=== PATIENT | male | born 1950 | race Caucasian/White ===

== ENCOUNTER 2016-07-18 07:49 | Inpatient (IN) | payer MEDICARE ==
--- NOTE | ~2016-07-18 | DS ---
Discharge Summary [facility] [address] [place]. [address] NAME: ARTHUR GAMBOA : 46 STATUS : DIS IN PAT#: [id number] AGE: 66 ADM/REG DATE : 07/18/16 MR#: [id number] REPORT SERV DATE: 07/30/16 DICTATED BY: REBA HIGGINS DATE: 07/30/16 REPORT STATUS : Draft TRANSCRIBED BY: BILL DATE: 07/30/16 Data Collection from hospitalization DISCHARGE DIAGNOSES: 1. Non-ST elevation myocardial infarction. 2. Coronary artery disease, status post drug-eluting stent to the LAD. 3. Ischemic cardiomyopathy. 4. Chronic kidney disease stage 3. CONSULTATIONS: None. PROCEDURES PERFORMED: Cardiac catheterization and percutaneous coronary intervention on 07/20/2016. MEDICATIONS: Aspirin 81 mg daily, Lipitor 40 mg at bedtime, Coreg 6.25 mg twice a day, Plavix 75 mg daily, and nitroglycerin 0.4 mg sublingually as needed. CONDITION AT DISCHARGE: Stable. DISPOSITION: The patient was discharged home on a low-sodium, low-cholesterol, cardiac diet with activities as instructed. He would follow up with Dr. Romulo Lamb, on 08/14/2016. HOSPITAL COURSE: This is a 66-year-old man, who has been hospitalized in March 2014, with acute coronary syndrome. He had a previous left circumflex stented in 2006. On March of 2014, he had a totally occluded circumflex that was recannulized and a proximal RCA that was also stented. His ejection fraction prior to that time of his most recent myocardial infarction was 40%. He said that on the evening prior to this admission, he was awakened from sleep around midnight and felt somewhat uncomfortable, he went back to bed, and got up again around 2:00 a.m., and started to develop some worsening discomfort. He tries to relieve himself by drinking a carbonated beverage. He finally went to the [facility] where he was found to have elevated enzymes. Chest discomfort was 6/10, with some left arm aching. He was presently asymptomatic. Labs from the outside emergency room showed chronic kidney disease stage 3. He had a creatinine level of 2. Glucose was elevated at 151. Troponin was found to be 0.18. The EKG showed no acute repolarization changes. He was felt to have had a xlb-OE-fdgeekrrn myocardial infarction. He has underlying ischemic cardiomyopathy. He was admitted to the hospital at this time for further evaluation and treatment. Upon admission, he was alert and cooperative. His abdomen was soft and nontender. The following day, he had slight twinges of discomfort during the night. It was felt that he would need to undergo cardiac catheterization and possible percutaneous coronary intervention. On the 07/20/2016, he had no chest pain. At this time, he was in a normal sinus rhythm. Troponin was 2.88. No SULY inhibitor would be given, secondary to his elevated creatinine. He was taken to the cardiac paint laboratory technician by Dr. Ray Celis, where he underwent the above-mentioned procedure. He tolerated this well. There were no complications. Discharge planning was performed. On 07/21/2016, he had no new complaints. He had good pain control. He was in a sinus rhythm. Discharge instructions were given. Due to his improved and stable condition, he was discharged home with the above-stated Discharge Summary [address] [address] NAME: ARTHUR GAMBOA : 46 STATUS : DIS IN PAT#: [id number] AGE: 66 ADM/REG DATE : 07/18/16 MR#: [id number] REPORT SERV DATE: 07/30/16 DICTATED BY: REBA HIGGINS DATE: 07/30/16 REPORT STATUS : Draft TRANSCRIBED BY: BILL DATE: 07/30/16 instructions. Information collected by: Cristal Gipson I submit the above information as my discharge summary. TG/BILL Reba Higgins M.D. / [id number] CC: Jose Carlos Prince M.D.
--- NOTE | ~2016-07-18 | HP ---
History And Physical [facility] [id number] [place]. [address] NAME: ARTHUR GAMBOA : 46 STATUS : ADM IN [facility]#: [id number] AGE: 66 ADM/REG DATE : 07/18/16 MR#: [id number] REPORT SERV DATE: 07/18/16 DICTATED BY: REBA KELLY DATE: 07/18/16 REPORT STATUS : Draft TRANSCRIBED BY: MODL DATE: 07/18/16 DATE OF ADMISSION: 07/18/2016 INDICATION: Non-ST elevated NE. HISTORY: The patient is a 66-year-old gentleman who was hospitalized in 03/2014 with acute coronary syndrome. He had a previous left circumflex stented in 2006. In 03/2014, he had a totally occluded circumflex that was recanalized and a proximal RCA that was also stented. His EF prior to the time of his most recent NE was 40%. He states yesterday evening he awakened from sleep around midnight and felt somewhat uncomfortable. He went back to bed and got up again at 2 and started to develop some this worsening discomfort. He tried to relieve himself by drinking a carbonated beverage. He finally went to the [facility] where he was found to have elevated enzymes. Chest discomfort was 6/10 with some left arm aching. He is presently asymptomatic. Labs from the outside emergency room showed chronic kidney disease stage 3 with a BUN 21, creatinine of 2, glucose is elevated at 151. His troponin was 0.18. EKG showed no acute repolarization changes. CURRENT HOME MEDICATIONS: Aspirin 81 a day, atorvastatin 80 at h.s., carvedilol 3.125 b.i.d., and clopidogrel 75 a day. ALLERGIES OR INTOLERANCES: None. SOCIAL HISTORY: Negative for alcohol or tobacco use. FAMILY HISTORY: Mother is alive at age 91. She has some moderate dementia. Father in his 50s from metastatic melanoma. PHYSICAL EXAMINATION: GENERAL: 66-year-old white male, pleasant, and comfortable. VITAL SIGNS: Blood pressure 130/66, pulse 78 and regular, respirations 18. SKIN: No xanthelasmas. HEENT: Normocephalic. There is no pallor. Sclerae are white. NECK: JVD is not elevated. No carotid bruits. CHEST: No crackles. CARDIAC: S1 normal, S2 physiologic. Soft S4. ABDOMEN: Without tenderness. EXTREMITIES: Without edema. No clubbing. NEUROLOGIC: No focal deficits. MUSCULOSKELETAL: No kyphosis. LABORATORY DATA: Here none yet available. IMPRESSION: A 66-year-old gentleman with underlying ischemic cardiomyopathy, elevated History And Physical [address] [address] NAME: ARTHUR GAMBOA : 46 STATUS : ADM IN [facility]#: [id number] AGE: 66 ADM/REG DATE : 07/18/16 MR#: [id number] REPORT SERV DATE: 07/18/16 DICTATED BY: REBA KELLY DATE: 07/18/16 REPORT STATUS : Draft TRANSCRIBED BY: MODL DATE: 07/18/16 troponins, and chest discomfort. He will be admitted for further evaluation and therapy. DW/BILL Reba Kelly M.D. / [id number] CC: Tunde Palacios M.D. UNKNOWN , [facility]
[~2016-07-18 07:49] MED LIST: ASAB PO; BRILINTA90 MG PO; COREG6 PO; LIPITOR80 MG PO
[2016-07-18] MEDS ORDERED: PLAVIX PO (08:02)
[2016-07-18 12:47] LABS: BASOPHILS 0.2 %; BASOPHILS ABSOLUTE 0.02 10/3/uL (0.0-0.16); EOSINOPHILS 0.6 %; EOSINOPHILS ABSOLUTE 0.05 10/3/uL (0.0-0.53); HEMOGLOBIN 14.1 g/dL (13.6-17.8); IMMATURE GRANULOCYTES 0.1 %; IMMATURE GRANULOCYTES ABSOLUTE 0.01 10/3/uL (0.0-0.11); LYMPHOCYTES 8.6 %; LYMPHOCYTES ABSOLUTE 0.74 10/3/uL (0.67-4.30); MEAN CORPUS HGB CONC 34.4 g/dL (32.0-36.0); MEAN CORPUSCULAR HEMOGLOB 30.4 pg (26.0-34.0); MEAN CORPUSCULAR VOLUME 88.4 fL (80-100); MEAN PLATELET VOLUME 10.7 fL (9.2-13.0); MONOCYTES 8.3 %; MONOCYTES ABSOLUTE 0.71 10/3/uL (0.21-1.20); NEUTROPHILS 82.2 %; NEUTROPHILS ABSOLUTE 7.07 10/3/uL (2.02-8.40); PLATELET COUNT 159 10/3/uL (150-400); RBC DISTRIBUTION WIDTH 13.4 % (12.0-16.0); RED CELL COUNT 4.64 10/6/uL (4.7-6.1)
[2016-07-18 12:54] LABS: MANUAL DIFF NO %; WHITE BLOOD CELLS 8.6 10/3/uL (4.5-10.5)
[2016-07-18 13:01] LABS: BUN (BLOOD UREA NITROGEN) 20 MG/DL (6-23); CALCIUM, SERUM 8.8 MG/DL (8.5-10.4); CHLORIDE, SERUM 107 MMOL/L (96-112); CO2 (CARBON DIOXIDE) 29 MMOL/L (24-34); CREATININE 1.85 MG/DL (0.70-1.30); GFR AFRICAN AMERICAN 42 ML/MIN (>=60); GFR NON AFRICAN AMERICAN 37 ML/MIN (>=60); INTERNATIONAL NORMAL RATI 1.1 UNITS (-); PARTIAL THROMBO TIME 38.8 SEC (22.5-37.2); POTASSIUM, SERUM 3.9 MMOL/L (3.5-5.3); PROTIME (NOT ORD) 14.3 SEC (12.0-14.5); SODIUM, SERUM 142 MMOL/L (135-148)
[2016-07-18 13:02] LABS: GLUCOSE, SERUM 154 MG/DL (60-99)
[2016-07-18 13:03] LABS: TROPONIN I 0.18 NG/ML (<0.05)
[2016-07-19 04:16] LABS: BASOPHILS 0.3 %; BASOPHILS ABSOLUTE 0.02 10/3/uL (0.0-0.16); EOSINOPHILS 2.2 %; EOSINOPHILS ABSOLUTE 0.17 10/3/uL (0.0-0.53); HEMATOCRIT 38.4 % (40.0-51.0); HEMOGLOBIN 12.9 g/dL (13.6-17.8); IMMATURE GRANULOCYTES 0.1 %; IMMATURE GRANULOCYTES ABSOLUTE 0.01 10/3/uL (0.0-0.11); LYMPHOCYTES 13.8 %; LYMPHOCYTES ABSOLUTE 1.04 10/3/uL (0.67-4.30); MEAN CORPUS HGB CONC 33.6 g/dL (32.0-36.0); MEAN CORPUSCULAR HEMOGLOB 29.9 pg (26.0-34.0); MEAN CORPUSCULAR VOLUME 88.9 fL (80-100); MEAN PLATELET VOLUME 10.7 fL (9.2-13.0); MONOCYTES 12.7 %; MONOCYTES ABSOLUTE 0.96 10/3/uL (0.21-1.20); NEUTROPHILS 70.9 %; NEUTROPHILS ABSOLUTE 5.36 10/3/uL (2.02-8.40); PLATELET COUNT 135 10/3/uL (150-400); RBC DISTRIBUTION WIDTH 13.3 % (12.0-16.0); RED CELL COUNT 4.32 10/6/uL (4.7-6.1); WHITE BLOOD CELLS 7.6 10/3/uL (4.5-10.5)
[2016-07-19 04:17] LABS: MANUAL DIFF NO %
[2016-07-19 04:33] LABS: BUN (BLOOD UREA NITROGEN) 21 MG/DL (6-23); CALCIUM, SERUM 8.3 MG/DL (8.5-10.4); CHLORIDE, SERUM 108 MMOL/L (96-112); CHOL/HDL RATIO(NOT ORDER) 1.8 (0-5); CHOLESTEROL 80 MG/DL (< 200); CO2 (CARBON DIOXIDE) 23 MMOL/L (24-34); CREATININE 1.72 MG/DL (0.70-1.30); GFR AFRICAN AMERICAN 46 ML/MIN (>=60); GFR NON AFRICAN AMERICAN 40 ML/MIN (>=60); GLUCOSE, SERUM 173 MG/DL (60-99); HDL CHOLESTEROL 45 MG/DL (> 39); LDL CHOLESTEROL 26 MG/DL (< 130); NON-HDL CHOLESTEROL 35 MG/DL (< 160); SGPT(ALT) 20 U/L (5-65); SODIUM, SERUM 141 MMOL/L (135-148); TRIGLYCERIDE 46 MG/DL (< 150)
[2016-07-19 04:40] LABS: PARTIAL THROMBO TIME > 150.0 SEC (22.5-37.2)
[2016-07-20 05:33] LABS: BASOPHILS 0.5 %; BASOPHILS ABSOLUTE 0.03 10/3/uL (0.0-0.16); EOSINOPHILS 3.8 %; EOSINOPHILS ABSOLUTE 0.25 10/3/uL (0.0-0.53); HEMATOCRIT 38.6 % (40.0-51.0); HEMOGLOBIN 13.1 g/dL (13.6-17.8); IMMATURE GRANULOCYTES 0.3 %; IMMATURE GRANULOCYTES ABSOLUTE 0.02 10/3/uL (0.0-0.11); LYMPHOCYTES 17.6 %; LYMPHOCYTES ABSOLUTE 1.17 10/3/uL (0.67-4.30); MANUAL DIFF NO %; MEAN CORPUS HGB CONC 33.9 g/dL (32.0-36.0); MEAN CORPUSCULAR VOLUME 88.5 fL (80-100); MEAN PLATELET VOLUME 10.7 fL (9.2-13.0); MONOCYTES 7.8 %; MONOCYTES ABSOLUTE 0.52 10/3/uL (0.21-1.20); NEUTROPHILS ABSOLUTE 4.66 10/3/uL (2.02-8.40); PLATELET COUNT 139 10/3/uL (150-400); RBC DISTRIBUTION WIDTH 13.3 % (12.0-16.0); RED CELL COUNT 4.36 10/6/uL (4.7-6.1); WHITE BLOOD CELLS 6.7 10/3/uL (4.5-10.5)
[2016-07-20 05:35] LABS: INTERNATIONAL NORMAL RATI 1.2 UNITS (-); PROTIME (NOT ORD) 15.3 SEC (12.0-14.5)
[2016-07-20 05:48] LABS: PARTIAL THROMBO TIME > 150.0 SEC (22.5-37.2)
[2016-07-20 05:51] LABS: BUN (BLOOD UREA NITROGEN) 21 MG/DL (6-23); CALCIUM, SERUM 8.4 MG/DL (8.5-10.4); CHLORIDE, SERUM 113 MMOL/L (96-112); CHOL/HDL RATIO(NOT ORDER) 2.1 (0-5); CHOLESTEROL 94 MG/DL (< 200); CK-MB 2.3 NG/ML; CO2 (CARBON DIOXIDE) 23 MMOL/L (24-34); CPK 121 U/L (0-200); CREATININE 1.56 MG/DL (0.70-1.30); GFR AFRICAN AMERICAN 52 ML/MIN (>=60); GFR NON AFRICAN AMERICAN 45 ML/MIN (>=60); GLUCOSE, SERUM 142 MG/DL (60-99); HDL CHOLESTEROL 45 MG/DL (> 39); LDL CHOLESTEROL 37 MG/DL (< 130); NON-HDL CHOLESTEROL 49 MG/DL (< 160); POTASSIUM, SERUM 3.8 MMOL/L (3.5-5.3); SODIUM, SERUM 139 MMOL/L (135-148); TRIGLYCERIDE 63 MG/DL (< 150); TROPONIN I 2.88 NG/ML (<0.05)
[2016-07-21 05:26] LABS: BASOPHILS 0.5 %; BASOPHILS ABSOLUTE 0.03 10/3/uL (0.0-0.16); EOSINOPHILS 5.1 %; EOSINOPHILS ABSOLUTE 0.31 10/3/uL (0.0-0.53); HEMATOCRIT 36.8 % (40.0-51.0); HEMOGLOBIN 12.5 g/dL (13.6-17.8); IMMATURE GRANULOCYTES 0.2 %; IMMATURE GRANULOCYTES ABSOLUTE 0.01 10/3/uL (0.0-0.11); LYMPHOCYTES 17.6 %; LYMPHOCYTES ABSOLUTE 1.08 10/3/uL (0.67-4.30); MEAN CORPUSCULAR HEMOGLOB 29.8 pg (26.0-34.0); MEAN CORPUSCULAR VOLUME 87.8 fL (80-100); MEAN PLATELET VOLUME 10.8 fL (9.2-13.0); MONOCYTES 9.1 %; MONOCYTES ABSOLUTE 0.56 10/3/uL (0.21-1.20); NEUTROPHILS 67.5 %; NEUTROPHILS ABSOLUTE 4.14 10/3/uL (2.02-8.40); PLATELET COUNT 153 10/3/uL (150-400); RBC DISTRIBUTION WIDTH 13.5 % (12.0-16.0); RED CELL COUNT 4.19 10/6/uL (4.7-6.1); WHITE BLOOD CELLS 6.1 10/3/uL (4.5-10.5)
[2016-07-21 05:30] LABS: MANUAL DIFF NO %
[2016-07-21 05:31] LABS: BUN (BLOOD UREA NITROGEN) 20 MG/DL (6-23); CALCIUM, SERUM 8.4 MG/DL (8.5-10.4); CHLORIDE, SERUM 112 MMOL/L (96-112); CO2 (CARBON DIOXIDE) 23 MMOL/L (24-34); CREATININE 1.34 MG/DL (0.70-1.30); GFR AFRICAN AMERICAN 63 ML/MIN (>=60); GFR NON AFRICAN AMERICAN 54 ML/MIN (>=60); GLUCOSE, SERUM 135 MG/DL (60-99); SODIUM, SERUM 143 MMOL/L (135-148)
[2016-07-21] MEDS ORDERED: NTG150 SL (10:59)
== END 2016-07-21 11:45 | disposition home or self-care (01) | DRG 247 ==
LOC: 5NO 07:49 → SSU1 07-20 11:32
PROVIDERS: Internal Medicine Cardiovascular Disease; Internal Medicine Clinical Cardiac Electrophysiology
PROC: 027135Z Dilation of Coronary Artery, Two Arteries with Two Drug-eluting Intraluminal Devices, Percutaneous Approach (ICD-10-PCS; principal; 2016-07-20)
PROC: 4A023N7 Measurement of Cardiac Sampling and Pressure, Left Heart, Percutaneous Approach (ICD-10-PCS; 2016-07-20)
PROC: B2151ZZ Fluoroscopy of Left Heart using Low Osmolar Contrast (ICD-10-PCS; 2016-07-20)
PROC: B2111ZZ Fluoroscopy of Multiple Coronary Arteries using Low Osmolar Contrast (ICD-10-PCS; 2016-07-20)
DX: I21.4 Non-ST elevation (NSTEMI) myocardial infarction (principal); N18.3 Chronic kidney disease, stage 3 (moderate); I12.9 Hypertensive chronic kidney disease with stage 1 through stage 4 chronic kidney disease, or unspecified chronic kidney disease; I25.10 Atherosclerotic heart disease of native coronary artery without angina pectoris; E78.00 Pure hypercholesterolemia, unspecified; E78.5 Hyperlipidemia, unspecified; I25.2 Old myocardial infarction; Z95.5 Presence of coronary angioplasty implant and graft; Z80.8 Family history of malignant neoplasm of other organs or systems
CPT/HCPCS: 71010; 80048; 80061; 82550; 82553; 83036; 83735; 84460; 84484; 85025; 85347; 85610; 85730; 92920; 93005; 93458; 93571; 99152; 99153; A9270-GY; C1725; C1769; C1874; C1887; C1894; C9600; J2250; J3010; Q9967